=== PATIENT | female | born 1950 | race Two or more races ===

== ENCOUNTER 2023-07-06 11:23 | Outpatient (REF) | payer MEDICAID, SELFPAY ==
--- NOTE | ~2023-07-06 | XR_ITS ---
EXAMINATION: XR FOOT, RIGHT CLINICAL INFORMATION: Persistent right ankle pain status post remote injury. COMPARISON: None available. TECHNIQUE: AP, lateral, and oblique views of the right foot. FINDINGS: The bones and soft tissues are normal. No fracture. Alignment is anatomic. Joint spaces are maintained. XR/XR foot RT min 3V IMPRESSION: Unremarkable right foot.
--- NOTE | ~2023-07-06 | XR_ITS ---
EXAMINATION: XR ANKLE, RIGHT CLINICAL INFORMATION: Persistent right ankle pain status post remote injury. COMPARISON: None available. TECHNIQUE: AP, lateral, and mortise views of the right ankle. FINDINGS: No fracture. Alignment is anatomic. No erosions. Joint spaces are maintained. Soft tissues are normal. XR/XR ankle RT min 3V IMPRESSION: Unremarkable right ankle.
== END 2023-07-06 11:24 | disposition home or self-care (01) ==
LOC: HO.HHCX 11:23
PROVIDERS: Visit Provider Nurse Practitioner Primary Care
DX: M25.571 Pain in right ankle and joints of right foot (principal); M79.671 Pain in right foot
CPT/HCPCS: 73610; 73630

== ENCOUNTER 2023-12-09 13:27 | Outpatient (REF) | payer MEDICAID, SELFPAY | END 2023-12-09 13:28 | disposition home or self-care (01) | LOC: HO.CHCLNP 13:27 | PROVIDERS: Visit Provider Internal Medicine | DX: R35.0 Frequency of micturition (principal) | CPT/HCPCS: 87086; 87088; 87186 ==

== ENCOUNTER 2024-01-07 11:48 | Outpatient (REF) | payer MEDICAID, SELFPAY ==
[2024-01-07 14:24] LABS: MANUAL DIFF FLAG NO
[2024-01-07 14:29] LABS: Basophils Absolute Auto 0.1 X10*3/uL (0.0-0.2); Basophils Percent Auto 0.7 % (0-2); Eosinophils Absolute Auto 0.1 X10*3/uL (0.0-0.4); Eosinophils Percent Auto 1.7 % (0-4); Hemoglobin 11.8 g/dl (12.0-16.0); Imm Gran Abs Auto 0.03 X10*3/uL (0.00-0.03); Imm Gran Pct Auto 0.4 % (0.0-0.4); Lymphocytes Absolute Auto 1.9 X10*3/uL (1.2-4.9); Mean Corpuscular HGB Conc 32.8 g/dl (31.0-35.0); Mean Corpuscular Hemoglobin 26.5 pg (27.0-33.0); Mean Corpuscular Volume 80.9 fL (80.0-98.0); Monocytes Absolute Auto 0.4 X10*3/uL (0.1-1.2); Monocytes Percent Auto 5.8 % (2-11); Neutrophils Absolute Auto 4.4 x10*3/uL (2.0-8.3); Neutrophils Percent Auto 64.4 % (45-73); Platelet Count 377 X10*3/uL (160-400); Red Blood Count 4.45 X10*6/uL (4.20-5.50); Red Cell Distribution Width 15.2 % (11.0-16.0); White Blood Count 6.9 X10*3/uL (4.8-10.8)
[2024-01-07 14:55] LABS: Alanine Aminotransferase 10 U/L (0-31); Albumin Level 4.2 g/dL (3.5-5.0); Alkaline Phosphatase 99 U/L (39-117); Anion Gap 10 (12-20); Aspartate Amino Transferase 22 U/L (5-31); Bilirubin Direct < 0.1 mg/dL (0.0-0.5); Bilirubin Total 0.3 mg/dL (0.0-1.0); Blood Urea Nitrogen 13 mg/dL (9-16); Calcium 10.1 mg/dL (8.4-10.2); Carbon Dioxide 24 mmol/L (22-29); Chloride 106 mmol/L (96-108); Estimated Glomerular Filt Rate > 60; Glucose Random 84 mg/dL (60-115); Potassium 4.1 mmol/L (3.3-5.1); Sodium 136 mmol/L (135-145); Total Protein 7.3 g/dL (6.5-8.0)
[2024-01-07 14:59] LABS: Vitamin D 25-OH Total 47.6 ng/mL (>30)
[2024-01-07 15:35] LABS: Folate 12.8 ng/mL (> or = 4.0); Vitamin B12 > 2000 pg/mL (200-900)
[2024-01-08 03:49] LABS: HBS Num1 0.42 mIU/mL (0-7.99); HBc Num1 0.11 S/CO (0.00-0.79); HBsAGNum1 0.29 S/CO (0.00-0.99); Hepatitis A Antibody IgM 0.15 Index (0-0.79); Hepatitis B Core Antibody Nonreactive (Nonreactive); Hepatitis B Surface Antigen Negative (Negative); ~HepC Num1 0.06 S/CO (0.00-0.79); ~Hepatitis A Antibody IgM Nonreactive (Nonreactive); ~Hepatitis B Surface Antibody NONREACTIVE (Nonreactive); ~Hepatitis C Antibody Nonreactive (Nonreactive)
[2024-01-10 16:38] LABS: RPR Rapid Plasma Reagin NON-REACTIVE (NON-REACTIVE)
== END 2024-01-07 11:49 | disposition home or self-care (01) ==
LOC: HO.CHCLDS 11:48
PROVIDERS: Visit Provider Pediatrics
DX: Z12.31 Encounter for screening mammogram for malignant neoplasm of breast (principal); R35.0 Frequency of micturition; R41.3 Other amnesia
CPT/HCPCS: 36415; 80048; 80076; 82306; 82607; 82746; 84443; 85025; 86592; 86704; 86706; 86709; 86803; 87340

== ENCOUNTER 2024-08-17 11:08 | Outpatient (REF) | payer MEDICAID, SELFPAY ==
[2024-08-17 15:02] LABS: MANUAL DIFF FLAG NO
[2024-08-17 15:14] LABS: Basophils Absolute Auto 0.1 X10*3/uL (0.0-0.2); Basophils Percent Auto 0.8 % (0-2); Eosinophils Absolute Auto 0.1 X10*3/uL (0.0-0.4); Eosinophils Percent Auto 1.2 % (0-4); Hematocrit 36.8 % (37.0-47.0); Hemoglobin 11.8 g/dl (12.0-16.0); Imm Gran Abs Auto 0.05 X10*3/uL (0.00-0.03); Imm Gran Pct Auto 0.6 % (0.0-0.4); Lymphocytes Percent Auto 23.6 % (20-40); Mean Corpuscular HGB Conc 32.1 g/dl (31.0-35.0); Mean Corpuscular Hemoglobin 25.9 pg (27.0-33.0); Mean Corpuscular Volume 80.7 fL (80.0-98.0); Mean Platelet Volume 9.8 fL (9.4-12.3); Monocytes Absolute Auto 0.6 X10*3/uL (0.1-1.2); Monocytes Percent Auto 6.6 % (2-11); Neutrophils Absolute Auto 5.6 x10*3/uL (2.0-8.3); Neutrophils Percent Auto 67.2 % (45-73); Platelet Count 378 X10*3/uL (160-400); Red Blood Count 4.56 X10*6/uL (4.20-5.50); Red Cell Distribution Width 16.2 % (11.0-16.0); White Blood Count 8.4 X10*3/uL (4.8-10.8)
[2024-08-17 15:18] LABS: Appearance Urine Clear; Color Urine Yellow; Glucose Urine UA Negative (Negative); Leukocyte Esterase Urine Trace (Negative); Nitrite Urine Negative (Negative); PH 6.5 (5.0-9.0); Specific Gravity - Urine 1.015 (1.005-1.025); UMIC TRIGGER UACC YES; Urine Blood Trace (Negative); Urine Ketones Negative (Negative); Urine Protein Negative (Neg-Trace)
[2024-08-17 15:23] LABS: Bacteria Urine None Seen (None Seen); Hyaline Casts Urine 0-2 /LPF (0-2); Squamous Epithelial Cell Urine 0-2 /HPF (0-2); WBC Urine 0-5 /HPF (0-5)
[2024-08-17 16:10] LABS: Alanine Aminotransferase 9 U/L (0-31); Albumin Level 4.4 g/dL (3.5-5.0); Alkaline Phosphatase 110 U/L (39-117); Anion Gap 8 (12-20); Aspartate Amino Transferase 19 U/L (5-31); Bilirubin Direct 0.2 mg/dL (0.0-0.5); Bilirubin Total 0.3 mg/dL (0.0-1.0); Blood Urea Nitrogen 12 mg/dL (9-16); Calcium 10.2 mg/dL (8.4-10.2); Carbon Dioxide 27 mmol/L (22-29); Chloride 105 mmol/L (96-108); Estimated Glomerular Filt Rate > 60; Glucose Random 85 mg/dL (60-115); Potassium 3.7 mmol/L (3.3-5.1); Sodium 136 mmol/L (135-145); Total Protein 7.6 g/dL (6.5-8.0)
== END 2024-08-17 11:09 | disposition home or self-care (01) ==
LOC: HO.CHCLDS 11:08
PROVIDERS: Visit Provider Pediatrics
DX: R19.04 Left lower quadrant abdominal swelling, mass and lump (principal)
CPT/HCPCS: 36415; 80048; 80076; 81001; 85025

== ENCOUNTER 2024-09-08 09:22 | Outpatient (REF) | payer OTHER, SELFPAY ==
--- NOTE | ~2024-09-08 | CT_ITS ---
EXAMINATION: CT ABDOMEN AND PELVIS WITH CONTRAST CLINICAL INFORMATION: Abdominal lump/hernia. COMPARISON: None available. TECHNIQUE: Multidetector volumetric images were obtained from the superior aspect of the liver through the pubic symphysis following administration 85 mL of Omnipaque 350 intravenous contrast. Sagittal and coronal reformatted images were obtained on the technologist's workstation. Oral contrast: No This CT examination was performed using dose optimization techniques as appropriate, variously including the following: *Automated exposure control *Adjustment of mA and/or kV according to patient size (this includes techniques or standardized protocols for targeted exams where dose is matched to indication/reason for exam; i.e. extremities or head) *Use of iterative reconstruction technique DLP: 213 mGy-cm FINDINGS: Submitted for interpretation on November 07, 2024. Limited by patient's breathing artifact. LUNG BASES: No gross acute airspace disease or pulmonary nodules in the included lungs. LIVER, GALLBLADDER, AND BILIARY TREE: Liver measures 14 cm. There are multifocal, different sizes well-defined round and ovoid shaped low density lesions, the largest measures 2 cm in the left hepatic lobe. And another one in the right hepatic lobe. Portal vein, hepatic veins and intrahepatic portions of the IVC are patent. Gallbladder is contracted. No pericholecystic fluid collection or gallbladder wall thickening. No intrahepatic or extrahepatic biliary ductal dilatation. PANCREAS: No focal mass. No peripancreatic fluid collection. No main pancreatic ductal dilatation. SPLEEN: 7 cm. No focal mass. ADRENAL GLANDS: No nodular lesions. KIDNEYS AND URETERS: Multifocal scattered less than 1 cm cystic lesions. No gross renal mass or hydronephrosis. Extrarenal pelvises, bilaterally. BLADDER: Fluid-filled. GASTROINTESTINAL TRACT: Abundant stool within the large intestine. No intestinal obstruction pattern. No ascites. No pneumoperitoneum. No pneumatosis intestinalis. Appendix is normal. ABDOMINAL WALL: Small tiny fat-containing umbilical hernia. LYMPH NODES: No gross lymphadenopathy. VASCULAR: No aneurysm or dissection, calcified plaques abdominal aorta wall and iliac arteries. PELVIC VISCERA: No gross masses in the uterus. The ovaries are not clearly identified. OSSEOUS STRUCTURES: Multilevel spondylosis from L3-4 to L5-S1 resulting in subtle grade 1 anterolisthesis L4-5 and L5-S1. Levoconvex curvature apex at L3. Sclerosis and the sacroiliac joints. Osteopenia versus osteoporosis. No gross acute fracture. No lytic or blastic lesions. CT/CT abdomen pelvis w IV con IMPRESSION: Small tiny fat-containing umbilical hernia. Multifocal hypodensities throughout the liver parenchyma, statistically may represent cyst versus hemangiomata versus hamartoma. Spondylosis, L3-4, L4-5 and L5-S1. Probable renal cysts. Fleischner guidelines were followed. Electronically signed by: Jakob Bowser MD 11/07/2024 03:40 PM EST
[2024-09-08] MEDS: iohexoL 350 MG/ML 100 ML INFUS..BTL IV (11:55)
[2024-09-08] MEDS: Barium Sulfate Oral (Berry) 450 ML ORAL.SUSP PO ×2 (11:55)
== END 2024-09-08 09:23 | disposition home or self-care (01) ==
LOC: HO.CT 09:22
PROVIDERS: PCP Pediatrics; Visit Provider Pediatrics
DX: R19.04 Left lower quadrant abdominal swelling, mass and lump (principal)
CPT/HCPCS: 74177; Q9967

== ENCOUNTER → 2024-09-08 09:25 | Outpatient (BNV) | payer OTHER, SELFPAY | PROVIDERS: PCP Pediatrics; Visit Provider Radiology Diagnostic Radiology | DX: R19.04 Left lower quadrant abdominal swelling, mass and lump (principal) | CPT/HCPCS: 74177 ==

== ENCOUNTER 2025-08-31 10:29 | Outpatient (REF) | payer OTHER, SELFPAY ==
--- OUTSIDE RECORDS SUMMARY | 2025-08-31 09:45 | XMS_ITS | Encounter Summary ---
Author Organization [employer] Address [address] [facility] 7[address] [place] [address] Care Team Providers Care Mechanical Field Engineer Name Role Phone Genia Cordova MD Primary Care Provider [phone] Encounter Details Date Type Department Care Team ([facility] st Contact Info) Description 08/31/2025 9:45 AM EDT Office Visit [facility] PEDS [address] [place] [address] Genia Cordova MD [address] [place] [address] Nocturia (Primary Dx); Varicose veins of both lower extremities with inflammation; Cerebral aneurysm without rupture; Encounter for immunization Social History Tobacco Use Types Packs/Day Years Used Date Smoking Tobacco: Never Passive Smoke Exposure: Never Smokeless Tobacco: Never Alcohol Use Standard Drinks/Week Comments Never 0 (1 standard drink = 0.6 oz pur e alcohol) Depression Answer Date Recorded Patient Health Questionnaire-9 Score 6 03/01/2025 Patient Health Questionnaire-9 Score 6 03/01/2025 Last PHQ-9: Questionnaire Data Not on file 0 03/01/2025 Housing Stability Answer Date Recorded What is your housing situation today? I have patito reynolds 03/01/[address] you li ve. Do you have problems with any of the following? None of the above 03/01/2025 Food Insecurity Answer Date Recorded Within the past 12 months, y ou worried that your food would run out before you got money to buy more: Sometimes True 2024 Within the past 12 months,th e food you bought just didn't last and you didn't have enough money to get more: Sometimes True 03/01/2025 Transportation Answer Date Recorded In the past 12 months, has l ack of transportation kept you from medical appts, meetings, work or from getting things needed for daily living? Yes, it has kept me from medical appointments or getting medications.;Yes, it has kept me from non-medical meetings, work, or getting things that I need 03/01/2025 Utilities Answer Date Recorded In the past 12 months, has t he electric, gas, oil or water company threatened to shut off services in your home? No 03/01/2025 Depression Answer Date Recorded Patient Health Questionnaire-2 Score 0 03/01/2025 Internet Access Answer Date Recorded Internet Access Q1 Yes 03/01/2025 Internet Access Q2 Not on file 03/01/2025 Comments Unknown Sex and Gender Information Value Date Recorded Sex Assigned at Female 09/28/2022 10:37 AM EDT Legal Sex Female 10:37 AM EDT Gender Identity Female 09/28/2022 10:37 AM EDT Sexual Orientation Straight 09/28/2022 10 :37 AM EDT documented as of this encounter Last Filed Vital Signs Vital Sign Reading Time Taken Comments Blood Pressure 128/68 08/31/2025 10:01 AM EDT Pulse 72 08/31/2025 10:01 AM EDT Temperature 36.3 C (97.3 F) 08/31/2025 10:01 AM EDT Respiratory Rate 16 08/31/2025 10:01 AM EDT Oxygen Saturation - - Inhaled Oxygen Concentration - - Weight 52.6 kg (116 lb) 08/31/2025 10:01 AM EDT Height - - Body Mass Index 19.91 03/01/2025 1:52 PM EDT documented in this encounter Plan of Treatment Upcoming Encounters Date Type Department Care Team ([facility] Contact Info) Description 10/31/2025 11:30 AM EST Office Visit [facility] MED & PEDS [address] [place], [place] [phone] Genia Cordova MD [address] [place], [place] [phone] Scheduled Orders Name Type Priority Associated Diagnoses Orde r Schedule Basic Metabolic Panel Lab Routine Nocturia Varicose veins of both lower extremities with inflammation Cerebral aneurysm without rupture Expected: 08/31/2025 (Approximate), Expires: 08/31/2026 CBC auto differential Lab Routine Nocturia Varicose veins of both lower extremities with inflammation Cerebral aneurysm without rupture Expected: 08/31/2025 (Approximate), Expires: 08/31/2026 Magnesium Lab Routine Nocturia Varicose veins of both lower extremities with inflammation Cerebral aneurysm without rupture Expected: 08/31/2025, Expires: 08/31/2026 TSH W/Reflex to FT4 Lab Routine Nocturia Varicose veins of both lower extremities with inflammation Cerebral aneurysm without rupture Expected: 08/31/2025 (Approximate), Expires: 08/31/2026 Vitamin B12/Folate, Serum Panel Lab Routine Nocturia Varicose veins of both lower extremities with inflammation Cerebral aneurysm without rupture Expected: 08/31/2025, Expires: 08/31/2026 Vitamin D, 25-Hydroxy, Total, Immunoassay Lab Routine Nocturia Varicose veins of both lower extremities with inflammation Cerebral aneurysm without rupture Expected: 08/31/2025 (Approximate), Expires: 08/31/2026 Hepatic Function Panel Lab Routine Nocturia Varicose veins of both lower extremities with inflammation Cerebral aneurysm without rupture Expected: 08/31/2025 (Approximate), Expires: 08/31/2026 documented as of this encounter Procedures Procedure Name Priority Date/Time Associated Diagnosis Comments POCT URINALYSIS DIPSTICK Routine 08/31/2025 10:27 AM EDT Nocturia documented in this encounter Results * POCT Urinalysis (08/31/2025 10:27 AM EDT) Color, UA Yellow Clarity, UA Clear Glucose, UA Negative Bilirubin, UA Negative Ketones, UA Negative Spec Grav, UA 1.020 Blood, UA Negative Negative, None Detected pH, UA 7.0 Protein, UA Negative Urobilinogen, UA 0.2 Leukocytes, UA Negative Negative, Rare, Trace Nitrite, UA Negative Negative, None Detected Appearance, UA clear Urine 08/31/2025 10:2 7 AM EDT Genia Cordova MD POINT OF CARE TEST ENTER/EDIT ORDERABLES Final Result documented in this encounter Visit Diagnoses Diagnosis Nocturia- Primary Varicose veins of both lower extremities with inflammation Cerebral aneurysm without rupture Encounter for immunization documented in this encounter Additional Health Concerns Assessment Noted Time PHQ-9 Depression Total Score: 6 03/01/20 25 2:52 PM EDT documented as of this encounter Care Teams Mechanical Field Engineer Relationship Specialty Start Date End Date Genia Cordova MD [address] [place] [id number] PCP - General Family Medicine 09/15/22 documented as of this encounter
--- OUTSIDE RECORDS SUMMARY | 2025-08-31 11:21 | XMS_ITS | Encounter Summary ---
Author Organization [employer] Address [address] [facility] 7 [place] [address] Care Team Providers Care Aircraft Life Support Fitter Name Role Phone Genia Cordova MD Primary Care Provider [phone] Reason for Visit * Reason Onset Date Comments Call Back Request 02/18/2024 Encounter Details Date Type Department Care Team ([facility] st Contact Info) Description 02/18/2024 Telephone [facility] [address] [place] [address] Genia Cordova MD [address] [place] [address] Call Back Request Social History Tobacco Use Types Packs/Day Years Used Date Smoking Tobacco: Never Passive Smoke Exposure: Never Smokeless Tobacco: Never Alcohol Use Standard Drinks/Week Comments Never 0 (1 standard drink = 0.6 oz pur e alcohol) Depression Answer Date Recorded Patient Health Questionnaire-9 Score 5 02/11/2024 Patient Health Questionnaire-9 Score 5 02/11/2024 Last PHQ-9: Questionnaire Data Not on file 0 02/11/2024 Housing Stability Answer Date Recorded What is your housing situation today? I have patito reynolds 02/03/[address] you li ve. Do you have problems with any of the following? None of the above 02/03/2024 Food Insecurity Answer Date Recorded Within the past 12 months, y ou worried that your food would run out before you got money to buy more: Sometimes True 2023 Within the past 12 months,th e food you bought just didn't last and you didn't have enough money to get more: Sometimes True 02/03/2024 Transportation Answer Date Recorded In the past 12 months, has l ack of transportation kept you from medical appts, meetings, work or from getting things needed for daily living? Yes, it has kept me from medical appointments or getting medications. 02/03/2024 Utilities Answer Date Recorded In the past 12 months, has t he electric, gas, oil or water company threatened to shut off services in your home? No 02/03/2024 Depression Answer Date Recorded Patient Health Questionnaire-2 Score 0 02/11/2024 Comments Unknown Sex and Gender Information Value Date Recorded Sex Assigned at Female 09/28/2022 10:37 AM EDT Legal Sex Female 10:37 AM EDT Gender Identity Female 09/28/2022 10:37 AM EDT Sexual Orientation Straight 09/28/2022 10 :37 AM EDT documented as of this encounter Miscellaneous Notes * Telephone Encounter - Callie Wellington - 02/22/2024 11:15 AM EDT Tc from pt calling back in regards below. * Telephone Encounter - Clalie Wellington - 02/18/2024 2:40 PM EDT Tc from pt requeting a call back, pt needs instructions for Colonguard (colon cancer screening) documented in this encounter Plan of Treatment Upcoming Encounters Date Type Department Care Team (Late st Contact Info) Description 10/31/2025 11:30 AM EST Office Visit [facility] MED & PEDS [address] [place] [address] Genia Cordova MD [address] [place] [address] documented as of this encounter Visit Diagnoses Not on filedocumented in this encounter Additional Health Concerns Assessment Noted Time PHQ-9 Depression Total Score: 5 02/11/20 24 10:35 AM EDT documented as of this encounter Care Teams Aircraft Life Support Fitter Relationship Specialty Start Date End Date Genia Cordova MD [address] [place] [id number] PCP - General Family Medicine 09/15/22 documented as of this encounter
--- OUTSIDE RECORDS SUMMARY | 2025-08-31 11:21 | XMS_ITS | Encounter Summary ---
Author Organization [employer] Address [address] [facility] 7 [place] [address] Care Team Providers Care Software Build Engineer Name Role Phone Genia Cordova MD Primary Care Provider [phone] Reason for Visit * Reason Onset Date Comments Medication Question 12/14/2023 Encounter Details Date Type Department Care Team ([facility] st Contact Info) Description 12/14/2023 Telephone [facility] & PEDS [address] [place], [place] [phone] Genia Cordova MD [address] [place], [place] [phone] Medication Question Social History Tobacco Use Types Packs/Day Years Used Date Smoking Tobacco: Never Passive Smoke Exposure: Never Smokeless Tobacco: Never Alcohol Use Standard Drinks/Week Comments Never 0 (1 standard drink = 0.6 oz pur e alcohol) Comments Unknown Sex and Gender Information Value Date Recorded Sex Assigned at Female 09/28/2022 10:37 AM EDT Legal Sex Female 10:37 AM EDT Gender Identity Female 09/28/2022 10:37 AM EDT Sexual Orientation Straight 09/28/2022 10 :37 AM EDT documented as of this encounter Miscellaneous Notes * Telephone Encounter - Caroline Daniels RN - 12/14/2023 4:25 PM EST Returned call to pt regarding message below. Pt wanted to clarify if she is to stop Macrobid and take ampicillin or take both abx. Pt was informed that bacteria noted in urine cx is not compatible with Macrobid last prescribed during visit. Pt is to stop Macrobid and start ampicillin. Pt advised tocomplete treatment and return call if still having symptoms. Pt verbalized understanding and agreeswith plan. * Telephone Encounter - Haroon Eugene - 12/14/2023 10:21 AM EST Tc from requesting call back regarding clarification on medication ampicillin (Principen) 500 MG capsule prescribed on sick onsite visit 12/09/23. Please contact pt at [phone]. documented in this encounter Plan of Treatment Upcoming Encounters Date Type Department Care Team (Late st Contact Info) Description 10/31/2025 11:30 AM EST Office Visit [facility] MED & PEDS [address] [place] [address] Genia Cordova MD [address] [place] [address] documented as of this encounter Visit Diagnoses Not on filedocumented in this encounter Care Teams Software Build Engineer Relationship Specialty Start Date End Date Genia Cordova MD [address] [place] [address] PCP - General Family Medicine 09/15/22 documented as of this encounter
--- OUTSIDE RECORDS SUMMARY | 2025-08-31 11:21 | XMS_ITS | Clinical Summary ---
Author Organization [facility] Address [address] [place] [address] Care Team Providers Care Systems Support Officer Name Role Phone Lesly Villa PA-C Primary Care Provider [phone] Source Comments PLEASE NOTE, if this patient is a minor, it may be UNLAWFUL to discuss sensitive information that is contained in these records (such as FAMILY PLANNING, MENTAL HEALTH or SUBSTANCE ABUSE) with the minor patient's parent or other person without the patient's specific authorization.[facility] Social History Tobacco Use Types Packs/Day Years Used Date Smoking Tobacco: Never Assessed Social Connections Answer Date Recorded Social Connections and Isolation 0 11/12/2020 Financial Resource Strain Answer Date R ecorded Financial Resource Strain 0 2019 Stress Answer Date Recorded Stress 0 11/12/2020 Physical Activity Answer Date Recorded Physical Activity 0 11/12/2020 Food Insecurity Answer Date Recorded Food 0 11/12/2020 Transportation Needs Answer Date Record ed Transportation 0 11/12/2020 Housing Stability Answer Date Recorded Housing 0 11/12/2020 Safety and Environment Answer Date Dennys rded Safety 0 11/12/2020 Utilities Answer Date Recorded Utilities 0 11/12/2020 Employment Answer Date Recorded Employment 0 11/12/2020 Comments Unknown Sex and Gender Information Value Date Recorded Sex Assigned at Not on file Legal Sex Female 10:41 AM PDT Gender Identity Not on file Sexual Orientation Not on file Plan of Treatment Not on file Insurance [place] MEDICAID Care Teams Systems Support Officer Relationship Specialty Start Date End Date Lesly Villa PA-C [address] [place] [address] PCP - General Internal Medicine 09/19/20
--- OUTSIDE RECORDS SUMMARY | 2025-08-31 11:21 | XMS_ITS | Encounter Summary ---
Author Organization [employer] Address [address] [facility] 7 [place] [address] Care Team Providers Care Executive Administrator Name Role Phone Genia Cordova MD Primary Care Provider Reason for Visit * Reason Onset Date Comments Chart Prep 08/28/2025 Encounter Details Date Type Department Care Team ([facility] st Contact Info) Description 08/28/2025 Telephone [facility] MED & PEDS [address] [place], [place] [phone] Genia Cordova MD [address] [place] [address] Chart Prep Social History Tobacco Use Types Packs/Day Years [...] the past 12 months, has t he [employer], gas, oil or water [employer] threatened to shut off services in your [...] encounter Miscellaneous Notes * Telephone Encounter - Randi Knight MA - 08/28/2025 2:20 PM EDT Chart Prep Labs: not applicable Images: not applicable Referrals: complete Vaccines due: Covid, Flu, Tdap, Hep B, and Zoster Screenings: mammogram Overdue care gaps: Tobacco documented in this encounter Plan of Treatment Upcoming Encounters Date Type Department Care Team ([facility] st Contact Info) Description 10/31/2025 11:30 AM EST Office Visit [facility] [address] [facility] [place] [address] Genia Cordova MD [address] [place] [address] documented as of this encounter Visit Diagnoses Not on filedocumented in this encounter Additional Health Concerns Assessment Noted Time PHQ-9 Depression Total Score: 6 03/01/20 25 2:52 PM EDT documented as of this encounter Care Teams Executive Administrator Relationship Specialty Start Date End Date Genia Cordova MD [address] [place] [id number] PCP - General Family Medicine 09/15/22 documented as of this encounter
--- OUTSIDE RECORDS SUMMARY | 2025-08-31 11:21 | XMS_ITS | Encounter Summary ---
Author Organization [employer] Address [address] [facility] [address] [place] [address] Care Team Providers Care [employer] [facility] Lab Technician Name Role Phone Genia Cordova MD Primary Care Provider [phone] Encounter Details Date Type Department Care Team (Latest Contact Info) Description 08/31/2025 Travel Social History Tobacco Use Types Packs/Day Years [...] AM EDT documented as of this encounter Plan of Treatment Upcoming Encounters Date Type Department Care Team ([facility] st Contact Info) Description 10/31/2025 11:30 AM EST Office Visit [facility] MED & PEDS [address] [place] [address] Genia Cordova MD [address] [place] [address] documented as of this encounter Visit Diagnoses Not on filedocumented in this encounter Additional Health Concerns Assessment Noted Time PHQ-9 Depression Total Score: 6 03/01/20 25 2:52 PM EDT documented as of this encounter Care Teams [employer] Lab Technician Relationship Specialty Start Date End Date Genia Cordova MD [address] [place] [address] PCP - General Family Medicine 09/15/22 documented as of this encounter
--- OUTSIDE RECORDS SUMMARY | 2025-08-31 11:21 | XMS_ITS | Clinical Summary ---
Author Organization [employer] Address [address] [place] [address] [address] [place] [address] Care Team Providers Care Finance Officer Name Role Phone Genia Cordova MD Primary Care Provider [phone] Allergies Active Allergy Reactions Criticality Noted Date Comments Isoniazid Shortness of breath,Rash High 10/25/2021 Other reaction(s): Rash, Rash Rifampin Rash,Shortness of breath High 10/25/2021 Other reaction(s): Rash Medications aspirin 81 MG EC tablet Take 81 mg by mouth. 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 Encounters Date Type Department Care Team Description 08/31/2025 9:45 AM EDT Office Visit [facility] [address] [place], [place] [phone] Genia Cordova MD Nocturia (Primary Dx); Varicose veins of both lower extremities with inflammation; Cerebral aneurysm without rupture; Encounter for immunization 08/31/2025 Travel 08/28/2025 Telephone [facility] [address] [place], [place] [phone] Genia Cordova MD Chart Prep from Last 3 Months Immunizations Immunization Administration Dates Next Due Hep B, adult 03/30/2024,02/24/2024 Influenza High-dose Quadrivalent Preservative Fr ee 09/23/2022,08/29/2020 Influenza, High Dose Seasonal, Preservative Free 08/17/2024 Pneumococcal Conjugate PCV 20 02/11/2024 Social History Tobacco Use Types Packs/Day Years Used Date Smoking Tobacco: Never Passive Smoke Exposure: Never Smokeless Tobacco: Never Tobacco Cessation:Counseling Given: Not Answered Alcohol Use Standard Drinks/Week Comments Never 0 [...] Orientation Straight 09/28/2022 10 :37 AM EDT Last Filed Vital Signs Vital Sign Reading Time Taken Comments Blood Pressure 128/68 08/31/2025 10:01 AM EDT Pulse 72 08/31/2025 10:01 AM EDT Temperature 36.3 C (97.3 F) 08/31/2025 10:01 AM EDT Respiratory Rate 16 08/31/2025 10:01 AM EDT Oxygen Saturation 98% 03/01/2025 1:52 PM EDT Inhaled Oxygen Concentration - - Weight 52.6 kg (116 lb) 08/31/2025 10:01 AM EDT Height 162.6 cm (5' 4 ) 03/01/2025 1:52 PM EDT Body Mass Index 19.91 03/01/2025 1:52 PM EDT Plan of Treatment Upcoming Encounters Date Type Department Care Team ([facility] st Contact Info) Description 10/31/2025 11:30 AM EST Office Visit [facility] [address] [place] [address] Genia Cordova MD [address] [place] [address] Health Maintenance Due Date Last Done Comments CT Colonography 1952 Colonoscopy 1952 FIT 1952 Sigmoidoscopy 1952 DTaP/Tdap/Td Vaccines (1 - Tdap) 1971 Mammogram 1992 Zoster Vaccines (1 of 2) 2002 Hepatitis B Vaccines (3 of 3 - 19+ 3-dose series) 08/26/2024 03/30/2024, 02/24/2024 FOBT 02/27/2025 02/28/2024, 02/28/2024 COVID-19 Vaccine (2 - 2024-2 6 season) 2025 12/12/2021 Influenza Vaccine (#1) 2025 , 09/23/2022, 08/29/2020 Alcohol/Substance Use Screening 03/01/2026 03/01/2025 Depression Screening 03/01/2026 03/01/2025, 03/01/2025 Diabetes: Hemoglobin A1C 03/01/2026 03/01/2025 SDOH Screening 03/01/2026 03/01/2025 Tobacco Screening 08/31/2026 08/31/2025 Colorectal Cancer Screening 02/27/2027 FIT DNA/Cologuard 02/27/2027 02/28/2024, 02/28/2024 RSV Patients and Patients Aged 60 years or older (1 - 1-dose 75+ series) 2027 Hepatitis C Screening Completed 01/07/2024 Pneumococcal Vaccine: 50+ Years Completed 02/11/2024 HIB Vaccines Aged Out No longer eligi ble based on patient's age to complete this topic HPV Vaccines Aged Out No longer eligi ble based on patient's age to complete this topic Hepatitis A Vaccines Aged Out No long er eligible based on patient's age to complete this topic IPV Vaccines Aged Out No longer eligi ble based on patient's age to complete this topic Meningococcal B Vaccine Aged Out No l onger eligible based on patient's age to complete this topic Meningococcal Vaccine Aged Out No yvonne alexandr eligible based on patient's age to complete this topic RSV under 20 months Aged Out No longe r eligible based on patient's age to complete this topic Rotavirus Vaccines Aged Out No longer eligible based on patient's age to complete this topic Procedures Procedure Name Priority Date/Time Associated Diagnosis Comments POCT URINALYSIS DIPSTICK Routine 08/31/2025 10:27 AM EDT Nocturia POCT GLYCATED HEMOGLOBIN, TOTAL Routine 03/01/2025 2:52 PM EDT Nocturia LAB COLOGUARD COLON CANCER SCREEN Routine 02/28/2024 8:39 AM EDT Colon cancer screening HEPATITIS PANEL, GENERAL Routine 01/07/2024 11:51 AM EST Encounter for screening mammogram for malignant neoplasm of breast Frequent urination Memory impairment from Last 3 Months or Most Recently Relevant to Health Maintenance Results * POCT Urinalysis (08/31/2025 10:27 AM [...] OF CARE TEST ENTER/EDIT ORDERABLES Final Result * POCT HGB A1C (03/01/2025 2:52 PM EDT) Hemoglobin A1C 5.8 4.0 - 6.0 % QC Media Lot # Comment:[id number] Lot# Expiration Date Comment:10/17/2026 Blood 03/01/2025 2:52 PM EDT Genia Cordova MD POINT OF CARE TEST ENTER/EDIT ORDERABLES Final Result * Cologuard?? colon cancer screening (02/28/2024 8:39 AM EDT) Cologuard Result Negative Negative 03/03/20 10:05 AM EDT [employer] (CLIA #:[id number]) Comment: NEGATIVE TEST RESULT. A negative Cologuard result indicates a low likelihood that a colorectal cancer (CRC) or advanced adenoma (adenomatous polyps with more advanced pre-malignant features) is present. The chance that a person with a negative Cologuard test has a colorectal cancer is less than 1 in 1500 (negative predictive value >99.9%) or has an advanced adenoma is less than 5.3% (negative predictive value 94.7%). These data are based on a prospective cross-sectional study of 10,000 individuals at average risk for colorectal cancer who were screened with both Cologuard and colonoscopy. (Connor Hicks al, N Engl J Med 2014;370(14):0838-7589) The normal value (reference range) for this assay is negative. COLOGUARD RE-SCREENING RECOMMENDATION: Periodic colorectal cancer screening is an important part of preventive healthcare for asymptomatic individuals at average risk for colorectal cancer. Following a negative Cologuard result, the English Cancer Society and U.S. Multi-Society Task Force screening guidelines recommend a Cologuard re-screening interval of 3 years. References: English Cancer Society Guideline for Colorectal Cancer Screening: https://www.cancer.org/cancer/qvqia-wltqyv-pkjepr/qtyobrjih-fdqnngjhp-decyfhf/ac s-rec ommendations.html.; Elfego DK, Hadley CISNEROS, Danilo DawnK, Colorectal Cancer Screening: Recommendations for Physicians and Patients from the U.S. Multi-Society Task Force on Colorectal Cancer Screening , Am J Gastroenterology 2017; 112:3444-2055. TEST DESCRIPTION: Composite algorithmic analysis of stool DNA-biomarkers with hemoglobin immunoassay. Quantitative values of individual biomarkers are not reportable and are not associated with individual biomarker result reference ranges. Cologuard is intended for colorectal cancer screening of adults of either sex, 45 years or older, who are at average-risk for colorectal cancer (CRC). Cologuard has been approved for use by the U.S. FDA. The performance of Cologuard was established in a cross sectional study of average-risk adults aged 50-84. Cologuard performance in patients ages 45 to 49 years was estimated by sub-group analysis of near-age groups. Colonoscopies performed for a positive result may find as the most clinically significant lesion: colorectal cancer [4.0%], advanced adenoma (including sessile serrated polyps greater than or equal to 1cm diameter) [20%] or non- advanced adenoma [31%]; or no colorectal neoplasia [45%]. These estimates are derived from a prospective cross-sectional screening study of 10,000 individuals at average risk for colorectal cancer who were screened with both Cologuard and colonoscopy. (Connor Weller et al, N Engl J Med 2014;370(14):1294-9801.) Cologuard may produce a false negative or false positive result (no colorectal cancer or precancerous polyp present at colonoscopy follow up). A negative Cologuard test result does not guarantee the absence of CRC or advanced adenoma (pre-cancer). The current Cologuard screening interval is every 3 years. (English Cancer Society and U.S. Multi-Society Task Force). Cologuard performance data in a 10,000 patient pivotal study using colonoscopy as the reference method can be accessed at the following location: [email or web address]/results. Additional description of the Cologuard test process, warnings and precautions can be found at www.cologuard.com. Stool specimen (specimen) 02/28/2024 8:39 AM EDT 02/29/2024 10:52 AM EDT Genia Cordova MD LAB MOLECULAR DIAGNOSTICS ORD ERABLES Final Result [employer] (CLIA #:[id number]) [address] [place] [address], * Hepatitis A,B,C Profile (01/07/2024 11:51 AM EST) Hepatitis A IgM Nonreactive Nonreactive [facility] Comment:IgM antibodies to DAMIAN V not detected; does not exclude earlyacute or recovered HAV infection. ~Hepatitis B Surface Antibody NONREACTIVE Nonreactive [facility] Comment:Nonreactive: < 8.00 mIU/mL Hepatitis B Core Antibody Nonreactive Nonreactive [facility] Hepatitis C Antibody Nonreactive Nonreactive [facility] Comment:Antibodies to HCV no t detected; does not exclude early acuteHCV infection. Hepatitis B Surface Ag Negative Negative [facility] Blood Venous blood specimen / Unknown 01/07/2024 11:51 AM EST 01/07/2024 2:15 PM EST Genia Cordova MD LAB BLOOD ORDERABLES Final Re sult Performing Organization Address City/[facility]/ZIP Co de Phone Number [facility] [address] [place] [phone] from Last 3 Months or Most Recently Relevant to Health Maintenance Insurance [facility] [employer] OPT[employer] (HMO D-SNP) GENEVIEVE BENITEZ [id number] Advance Directives Documents on File Type Date Recorded Patient On Site Services Specialist Expl anation Advance Directives and Livin g Will 06/14/2024 11:15 AM HCP Care Teams Finance Officer Relationship Specialty Start Date End Date Genia Cordova MD [address] [place] [phone] PCP - General Family Medicine 09/15/22
[2025-08-31 14:19] LABS: MANUAL DIFF FLAG NO
[2025-08-31 14:29] LABS: Hematocrit 34.4 % (37.0-47.0); Hemoglobin 11.3 g/dl (12.0-16.0); Imm Gran Abs Auto 0.02 X10*3/uL (0.00-0.03); Imm Gran Pct Auto 0.3 % (0.0-0.4); Lymphocytes Absolute Auto 1.4 X10*3/uL (1.2-4.9); Mean Corpuscular HGB Conc 32.8 g/dl (31.0-35.0); Mean Corpuscular Hemoglobin 25.9 pg (27.0-33.0); Mean Corpuscular Volume 78.9 fL (80.0-98.0); NRBC Abs Auto 0.000 X10*3/uL (0.0-0.012); NRBC Pct Auto 0.0 /100WBC (0.0-0.2); Platelet Count 375 X10*3/uL (160-400); Red Blood Count 4.36 X10*6/uL (4.20-5.50); White Blood Count 5.9 X10*3/uL (4.8-10.8)
[2025-08-31 15:04] LABS: Alanine Aminotransferase 11 U/L (0-31); Albumin Level 4.3 g/dL (3.5-5.0); Alkaline Phosphatase 105 U/L (39-117); Anion Gap 9 (12-20); Aspartate Amino Transferase 25 U/L (5-31); Blood Urea Nitrogen 13 mg/dL (9-16); Calcium 9.6 mg/dL (8.4-10.2); Carbon Dioxide 27 mmol/L (22-29); Chloride 105 mmol/L (96-108); Estimated Glomerular Filt Rate > 60; Magnesium 2.2 mg/dL (1.6-2.6); Potassium 4.7 mmol/L (3.3-5.1); Sodium 136 mmol/L (135-145); Total Protein 7.1 g/dL (6.5-8.0)
[2025-08-31 15:32] LABS: Folate 12.7 ng/mL (> or = 4.0); Vitamin B12 > 2000 pg/mL (200-900)
== END 2025-08-31 10:30 | disposition home or self-care (01) ==
LOC: HO.CHCLDS 10:29
PROVIDERS: Visit Provider Pediatrics
DX: I83.11 Varicose veins of right lower extremity with inflammation (principal); I83.12 Varicose veins of left lower extremity with inflammation; I67.1 Cerebral aneurysm, nonruptured; R35.1 Nocturia
CPT/HCPCS: 36415; 80048; 80076; 82306; 82607; 82746; 83735; 84443; 85025